=== PATIENT | female | born 2000 | race Two or more races ===

== ENCOUNTER 2024-11-12 16:10 | Emergency (ER) | payer MEDICAID, SELFPAY ==
[2024-11-12 16:22] VITALS: BP 108/70; PULSE 92; RESP 16; TEMP 36.9; O2SAT 98; BMI 22.0
--- NOTE | 2024-11-12 16:35 | EDNOTE_ITS ---
ED General RME/HPI General Chief complaint: Dental/Oral/Throat Stated complaint: SORE THROAT, TONSILS SWOLLEN, HEARTBURN Time Seen by Provider: 11/12/24 16:15 Arrival date/time: 11/12/24 16:10 RME / HPI RME / HPI narrative: Patient is a 23-year-old female presents to the ED with complaint of sore throat. Onset today. States her tonsils appear swollen. Also states that she has been having heartburn. She describes a burning-like sensation radiating from the epigastrium towards the throat. Worse after eating. No fevers. No vomiting. No sternal chest pain. No shortness of breath. Related Data Previous Rx's ?Medication ?Instructions ?Recorded famotidine 40 mg tablet 40 mg PO QDAY #30 tabs 11/12 Allergies Allergy/AdvReac Type Severity Reaction Status Date / Time NKA* Allergy Uncoded 11/12/24 16:14 Review of Systems Review of Systems Systems Reviewed: All systems reviewed, normal except as documented ED Exam Narrative Physical exam: Constitutional: no acute distress, age appropriate, non-toxic Eyes: PERRL, conjunctivae w/o pallor, EOMI HENT: normocephalic, atraumatic. Oral mucosa moist Respiratory Effort: no stridor, effort normal, no retractions Breath sounds: Clear bilaterally; No rales, No rhonchi, No wheezing Cardiovascular: regular rhythm, S1 and S2 normal, no murmur Abdominal: soft; non-distended, non-tender Musculoskeletal: no deformities, no swelling, no LE edema Skin: warm, dry; No rash Neurology: alert, oriented X 4. Normal gait. Moves all extremities spontaneously. Psychology: cooperative, normal mood Course Quality Measures none Orders Category Date Time Status Strep A Rapid Stat Lab 11/12/24 16:28 Completed Famotidine [Pepcid] Med 11/12/24 16:25 Discontinued 40 mg PO X1 ONE mg Hyd/Al Hyd/Evens Susp [Maalox Susp] Med 11/12/24 16:25 Discontinued 30 ml PO X1 ONE Vital Signs Vital signs: Vital Signs Temperature 98.5 F 11/12/24 16:22 Pulse Rate 92 11/12/24 16:22 Respiratory Rate 16 11/12/24 16:22 Blood Pressure 108/70 11/12/24 16:22 Pulse Oximetry (%) 98 11/12/24 16:22 Oxygen Delivery Method Room Air 11/12/24 16:22 MDM Patient data External records reviewed:: [facility] previous records Clinical information provided by:: patient Social determinants that could affect healthcare access:: none Patient has the following chronic illnesses:: None How is presenting disease/condition affected by chronic disease/condition?: no chronic disease Evaluation data The following diagnostics were reviewed and interpreted by me:: lab results Lab and/or radiology exams considered but not ordered:: Considered labs and imaging, but not indicated Interpretation Summary: Strep negative Medications Medications considered but not ordered:: N/A Medication administrations:: Medication Administration History Discontinued Medications Al Hydrox/Mg Hydrox/Simethicone (Mg Hyd/Al Hyd/Evens (Maalox Reg) Susp 30 Ml Udc) 30 ml PO X1 ONE Stop: 11/12/24 16:26 Last Admin: 11/12/24 16:39 Dose: 30 ml Documented By: MATTEO Famotidine (Famotidine 20 Mg Tablet) 40 mg PO X1 ONE Stop: 11/12/24 16:26 Last Admin: 11/12/24 16:39 Dose: 40 mg Documented By: MATTEO See above Consultations Consultation(s) initiated? (list below): No Diagnosis Differential Diagnosis ED Complaint MDM: See MDM Most likely diagnosis given after review of the tests above:: GERD Admission Indicated Admission indicated?: not indicated Explain why admission is indicated or not indicated:: Stable for outpatient management Admission Request Was there a request for admission?: No Disposition Plan Disposition Plan: Discharge Discharge Attestation Discharge Attestation: The patient and all family members were given an opportunity to ask questions and understood the discharge instructions. Discharge instructions specifically effects, indications for sooner follow up or return to the emergency department, and the expected course of current diagnosis. Patient condition: Stable Medical Decision Making MDM Narrative MDM Narrative: Patient presents with complaint of sore throat and heartburn . Differential diagnoses include GERD, gastritis, viral pharyngitis, strep pharyngitis. Strep screen was negative. Patient felt much better after Maalox and Pepcid. Likely GERD versus viral pharyngitis. Counseled to follow-up with primary care and strict return to ED precautions given. Differential Diagnosis Differential Diagnosis: See MDM Lab Data Labs: Lab Results 11/12/24 Range/Units 16:28 Group A Strep Rapid Negative (Negative) Discharge Plan Plan Patient Disposition: HOME (Self Care) Prescriptions/Referrals Prescriptions/Med Rec: New famotidine 40 mg tablet 40 mg PO QDAY Qty: 30 0RF Referrals: No Primary/Family,Physician [Primary Care Provider] - In 1 week Problem List Clinical Impression: Gastroesophageal reflux Patient/Caregiver Discharge Instructions Education Materials: ED GERD (Adult) Additional Instructions: Follow-up with your primary care doctor for further treatment of GERD symptoms. Take medication as prescribed. Return to the ED for any new or worsening symptoms. Print Language: Tajik Stand Alone Forms: [employer] Award Info., Patient Portal Info Letter
[2024-11-12] MEDS: FAMOTIDINE 20 MG TABLET 40 MG PO (16:39)
[2024-11-12] MEDS: MG HYD/AL HYD/SIME (Maalox Reg) SUSP 30 ML UDC PO (16:39)
[2024-11-12 17:24] LABS: Strep A Rapid Negative (Negative)
[2024-11-12 18:58] VITALS: BP 116/87; PULSE 85; RESP 18; TEMP 37.2; O2SAT 100
== END 2024-11-12 19:06 | disposition home or self-care (01) ==
PROVIDERS: Physician Assistant; Emergency Provider Emergency Medicine
DX: K21.9 Gastro-esophageal reflux disease without esophagitis (principal)
CPT/HCPCS: 87651; 99283; A9270

== ENCOUNTER 2024-12-03 11:29 | Emergency (ER) | payer MEDICAID, SELFPAY ==
[2024-12-03 11:30] VITALS: BMI 23.4
[2024-12-03 11:41] VITALS: BP 109/75; PULSE 81; RESP 16; TEMP 37; O2SAT 97; BMI 23.4
--- NOTE | 2024-12-03 11:53 | EDNOTE_ITS ---
ED Neck Injury Pain RME/HPI General Chief Complaint: Neck Pain/Injury Stated Complaint: RIGHT SIDED NECK PAIN Time Seen by Provider: 12/03/24 11:35 Arrival date/time: 12/03/24 11:29 23-year-old female with no significant medical problems presents to the Emergency Department today with complaints of right-sided neck pain patient reports that she does work and lift boxes on a daily basis and concerned that perhaps this may have caused pain. Patient reports that she did not have pain immediately patient ports that she went to sleep and when she woke up her neck was stiff on the right side Limitations: no limitations Related Data Previous Rx's ?Medication ?Instructions ?Recorded famotidine 40 mg tablet 40 mg PO QDAY #30 tabs 11/12 cyclobenzaprine 10 mg tablet 10 mg PO TID PRN muscle s pasm 10 12/03/24 days #30 tab-caps ibuprofen 600 mg tablet 600 mg PO Q6H #30 tabs 12/03 Allergies Allergy/AdvReac Type Severity Reaction Status Date / Time NKA* Allergy Uncoded 12/03/24 11:32 Review of Systems Review of Systems Systems Reviewed: All systems reviewed, normal except as documented Constitutional Constitutional: Reports system reviewed and no additional complaints, except as documented, Denies fever(s) and Denies headache(s) Eyes Eyes: Reports system reviewed and no additional complaints, except as documented and Denies blurry vision ENT Ears, Nose, Mouth, and Throat: Reports system reviewed and no additional complaints, except as documented, Denies headache(s), Denies nasal congestion, Denies nasal discharge and Reports neck pain Cardiovascular Cardiovascular: Reports system reviewed and no additional complaints, except as documented, Denies chest pain and Denies dyspnea Respiratory Respiratory: Reports system reviewed and no additional complaints, except as documented, Denies chest congestion, Denies cough and Denies dyspnea Gastrointestinal Gastrointestinal: Reports system reviewed and no additional complaints, except as documented and Denies abdominal pain Musculoskeletal Musculoskeletal: Reports system reviewed and no additional complaints, except as documented and Reports neck pain Integumentary/Breasts Skin/Breast: Reports system reviewed and no additional complaints, except as documented and Denies rash Neurologic Neurologic: Reports system reviewed and no additional complaints, except as documented, Reports as per HPI and Denies headache(s) Past Medical History Past Medical History CARDIAC: Negative Congestive Heart Failure RESPIRATORY: Negative Chronic Obstructive Pulmonary Disease (COPD) GENITOURINARY: Negative Renal Disease ENDOCRINE: Negative Diabetes Mellitus Type 1 or Diabetes Mellitus Type 2 Social History SMOKING STATUS: Never smoker ED Exam General Limitations: Present no limitations General appearance: Present alert and in no apparent distress Head Head exam: Present atraumatic, normocephalic and normal inspection Eye Eye exam: Present normal appearance, PERRL and EOMI; Absent conjunctival injection ENT ENT exam: Present normal exam, normal oropharynx and mucous membranes moist Neck Neck exam: Present normal inspection, full ROM, trachea midline and tenderness (Right-sided neck pain) Chest Chest inspection: Present normal inspection and symmetric chest wall rise Respiratory Respiratory exam: Present normal lung sounds bilaterally Cardiovascular Cardiovascular exam: Present regular rate, normal rhythm and normal heart sounds Abdominal Exam Abdominal exam: Present soft and normal bowel sounds Extremities Exam Extremities exam: Present normal inspection and full ROM Back Exam Back exam: Present normal inspection and full ROM Neurological Exam Neurological exam: Present alert, oriented X3 and CN II-XII intact Psychiatric Psychiatric exam: Present normal affect and normal mood Skin Skin exam: Present warm, dry, intact and normal color Course Quality Measures none Orders Category Date Time Status Ketorolac Inj [Toradol Inj] Med 12/03/24 11:52 Discontinued 30 mg IM X1 ONE Vital Signs Vital signs: Vital Signs Temperature 98.6 F 12/03/24 11:41 Pulse Rate 81 12/03/24 11:41 Respiratory Rate 16 12/03/24 11:41 Blood Pressure 109/75 12/03/24 11:41 Pulse Oximetry (%) 97 12/03/24 11:41 Oxygen Delivery Method Room Air 12/03/24 11:41 O2 saturation 97% on room air within normal limits Neck Pain MDM Narrative MDM Narrative:: 23-year-old female with no significant medical problems presents to the Emergency Department today with complaints of right-sided neck pain patient reports that she does work and lift boxes on a daily basis and concerned that perhaps this may have caused pain. Patient reports that she did not have pain immediately patient ports that she went to sleep and when she woke up her neck was stiff on the right side On exam patient has tenderness right side the neck patient reports pain is worse with movement patient reports no trauma On exam I suspect the patient has torticollis and not related to injury Patient discharged home in no distress to follow-up with primary care doctor in the next 24 to 48 hours and for any worsening symptoms to return to the ER immediately Patient data External records reviewed:: [facility] previous records Clinical information provided by:: patient Social determinants that could affect healthcare access:: none Patient has the following chronic illnesses:: None How is presenting disease/condition affected by chronic disease/condition?: no chronic disease Evaluation data The following diagnostics were reviewed and interpreted by me:: other (specify) Lab and/or radiology exams considered but not ordered:: Consider not ordered Interpretation Summary: N/A Medications / Prescriptions Medications or Prescriptions considered but not ordered:: Given Medication administrations:: Medication Administration History Discontinued Medications Ketorolac Tromethamine (Ketorolac Inj 30 Mg/Ml Vial) 30 mg IM X1 ONE Stop: 12/03/24 11:53 Last Admin: 12/03/24 12:03 Dose: 30 mg Documented By: MP Given Consultations Consultation(s) initiated? (list below): No Diagnosis Neck Differential Diagnosis: disc disorder of cervical region, whiplash injury to neck and other Most likely diagnosis given after review of the tests above:: Neck pain Admission Indicated Admission indicated?: not indicated Admission Request Was there a request for admission?: No Disposition Plan Disposition Plan: Discharge Discharge Attestation Discharge Attestation: The patient and all family members were given an opportunity to ask questions and understood the discharge instructions. Discharge instructions specifically effects, indications for sooner follow up or return to the emergency department, and the expected course of current diagnosis. Patient condition: Stable Discharge Plan Plan Patient Disposition: HOME (Self Care) Disposition Comment: Stable Prescriptions/Referrals Prescriptions/Med Rec: New cyclobenzaprine 10 mg tablet 10 mg PO TID PRN (Reason: muscle spasm) 10 Days Qty: 30 0RF ibuprofen 600 mg tablet 600 mg PO Q6H Qty: 30 0RF No Action famotidine 40 mg tablet 40 mg PO QDAY Qty: 30 0RF Problem List Clinical Impression: Strain of neck muscle Patient/Caregiver Discharge Instructions Education Materials: Self-Care for Strains and Sprains Additional Instructions: Please follow up with your primary care doctor in the next 24-48hrs for any worsening symptoms return here immediately Print Language: Trinidadian Stand Alone Forms: [employer] Award Info., Work/School Release, Patient Portal Info Letter PA/ALEX Supervising Physician MIKALA/ALEX Supervising Physician: Dr Hutson
[2024-12-03] MEDS: KETOROLAC INJ 30 MG/ML VIAL IM (12:03)
== END 2024-12-03 12:45 | disposition home or self-care (01) ==
LOC: SERX 12:22
PROVIDERS: Emergency Provider Emergency Medicine; PCP Internal Medicine
DX: S16.1XXA Strain of muscle, fascia and tendon at neck level, initial encounter (principal); X58.XXXA Exposure to other specified factors, initial encounter
CPT/HCPCS: 96372; 99283; J1885

== ENCOUNTER → 2025-06-10 | Outpatient (CLI) | payer MEDICAID, SELFPAY ==
--- NOTE | 2025-06-10 15:00 | XR_ITS ---
Examination: Breast ultrasound complete, bilateral Date and time of exam: June 10, 2025, 1445 hours INDICATIONS: White nipple discharge and breast pain bilateral 4 years Technique: Real-time grayscale ultrasonographic imaging bilateral breasts, including all 4 quadrants as well as nipple retroareolar and axillary regions. Findings: Sonographic images right breast 11:00 nodule lobular margins 12 x 16 mm Sonographic images left breast No cystic or solid masses Bilateral retroareolar dilated ducts IMPRESSION: BI-RADS Category 3: Probably benign findings Recommend 1 additional 6 month right breast sonogram follow-up to document stability of 11:00 nodule right breast described above
== END | disposition home or self-care (01) ==
PROVIDERS: PCP Nurse Practitioner Family; Referring Provider Nurse Practitioner Family; Visit Provider Nurse Practitioner Family
DX: N63.11 Unspecified lump in the right breast, upper outer quadrant (principal); N64.52 Nipple discharge
CPT/HCPCS: 76641